=== PATIENT | female | born 1990 | race Caucasian/White ===

== ENCOUNTER 2019-10-04 12:10 | Emergency (ER) | payer OTHER ==
[~2019-10-04] VITALS: Ht 165.1 cm; Wt 59.0 kg
[2019-10-04] MEDS ORDERED: FLEXERIL PO (12:30)
[2019-10-04 12:41] LABS: URINE BLOOD NEGATIVE (Negative); URINE CLARITY SL CLOUDY; URINE COLOR YELLOW; URINE GLUCOSE-RANDOM NEGATIVE (Negative); URINE KETONES 2+ (Negative); URINE LEUKOCYTES-REFLEX NEGATIVE (Negative); URINE NITRITE-REFLEX NEGATIVE (Negative); URINE PROTEIN NEGATIVE (Negative); URINE SPECIFIC GRAVITY >= 1.030 (1.005-1.030)
[2019-10-04 12:42] LABS: URINE BILIRUBIN 2+ (Negative)
[2019-10-04 12:44] LABS: ABSOLUTE LYMPHOCYTES 0.5 thou/uL (0.8-5.3); ABSOLUTE MONOCYTES 0.5 thou/uL (0.0-1.2); ABSOLUTE NEUTROPHILS 4.4 thou/uL (1.6-8.1); BASOPHILS 0.4 %; EOSINOPHILS 0.4 %; HEMATOCRIT 40.5 % (37.0-47.0); HEMOGLOBIN 14.4 gm/dL (12.0-15.0); LYMPHOCYTES 8.7 %; MCH 33.2 pg (26.0-34.0); MCHC 35.6 g/dL (28.0-37.0); MCV 93.1 fL (80.0-100.0); MONOCYTES 8.5 %; MPV 10.1 fl. (7.2-11.1); NUCLEATED RBCS 0 /100WBC; PLATELET COUNT* 146 thou/uL (150-400); RBC 4.35 mil/uL (4.20-5.00); WBC 5.3 thou/uL (4.0-11.0)
[2019-10-04 13:02] LABS: CALCIUM 8.7 mg/dL (8.5-10.1); CREATININE 0.9 mg/dL (0.6-1.3); POTASSIUM 3.5 mmol/L (3.5-5.1)
[2019-10-04 13:04] LABS: ALBUMIN 4.4 g/dL (3.4-5.0); TOTAL BILIRUBIN 0.7 mg/dL (<0.1-1.0); TOTAL PROTEIN 7.4 g/dL (6.4-8.2)
[2019-10-04 13:30] LABS: SQUAMOUS 4-10 Moderate /LPF (0-3); URINE WBC-REFLEX 0-5 Rare /HPF (0-5)
[2019-10-04 13:31] LABS: BACTERIA-REFLEX 1-9 Few /HPF (None Seen); CASTS None Seen /LPF (None Seen); CRYSTALS None Seen /LPF (None Seen); MUCUS 4-6 Moderate strn/LPF (None Seen); URINE RBC 0-2 Rare /HPF (0-2)
[2019-10-04] MEDS ORDERED: PROMS25 WY RECTAL (14:43)
[2019-10-04] MEDS ORDERED: CIPRO500 MG PO (14:43)
[2019-10-04] MEDS ORDERED: TYLENOL WITH CO1 TA1 PO (14:43)
[2019-10-04] MEDS ORDERED: ONDANSETRON ODT4 MG PO (14:54)
[2019-10-04 15:03] VITALS: BP 125/63
[2019-10-04 15:04] LABS: AMP/METHAMP Negative (Negative); BARBITURATES Negative (Negative); BENZODIAZEPINES Negative (Negative); COCAINE Negative (Negative); METHADONE Negative (Negative); OPIATES Negative (Negative); PCP Negative (Negative); THC POSITIVE (Negative)
[2019-10-05 08:51] LABS: ICTOTEST (BILI CONFIRMATORY) Negative (Negative)
== END 2019-10-04 15:25 | disposition home or self-care (01) ==
LOC: M.ERS 12:10
PROVIDERS: Physician Assistant
DX: K50.00 Crohn's disease of small intestine without complications (principal); F41.9 Anxiety disorder, unspecified; F17.210 Nicotine dependence, cigarettes, uncomplicated; Z88.8 Allergy status to other drugs, medicaments and biological substances; Z79.899 Other long term (current) drug therapy